=== PATIENT | male | born 1955 ===

== ENCOUNTER 2017-01-17 22:20 | Emergency (ER) | payer MEDICARE, OTHER ==
[2017-01-17 22:35] VITALS: RESP 20
[2017-01-17] MEDS ORDERED: Sodium Chloride 0.9% 1,000 ML IV ONE (23:10)
--- NOTE | 2017-01-17 23:18 | C.PDOC ---
History Of Present Illness Patient is a 61 year old male with a PMHx of vascular dementia and paranoid schizophrenia who presents to the ER for declining mental status for the past 5 days. Patient was seen by psychiatrist 2 days ago. Patient refuses to eat or answer question which is below baseline as per and daughter. Denies any physical complaints at this time. Time Seen by Provider: 01/17/17 22:55 Chief Complaint (Nursing): Altered Mental Status History Per: Patient History/Exam Limitations: None Onset/Duration Of Symptoms: Days (5) Onset Of Symptoms: Other (5 days) Current Symptoms Are (Timing): Still Present Usual Baseline: Unknown Exacerbating Factor(s): Unknown Use Of Anticoag/Antiplatelets: Unknown Speech Is: Normal Associated Symptoms: Not Eating, Other (Refuses to answer questions). denies: Fever, Chills, Vomiting, Diarrhea Past Medical History Reviewed: Historical Data, Nursing Documentation, Vital Signs Vital Signs: Last Vital Signs Temp 99 F 01/18/17 02:08 Pulse 96 H 01/18/17 02:08 Resp 20 01/18/17 02:08 BP 143/91 H 01/18/17 02:08 Pulse Ox 95 01/18/17 02:08 - Medical History PMH: Anxiety, Dementia, HTN, Hypercholesterolemia, Schizophrenia Surgical History: No Surg Hx Family History: States: Unknown Family Hx - Social History Hx Alcohol Use: No Hx Substance Use: No - Immunization History Hx Tetanus Toxoid Vaccination: No Hx Influenza Vaccination: No Hx Pneumococcal Vaccination: No Review Of Systems Constitutional: Negative for: Fever, Chills Gastrointestinal: Negative for: Nausea, Vomiting, Diarrhea Neurological: Positive for: Altered Mental Status Physical Exam - Physical Exam Appears: Well, Non-toxic, Other (Morbidly obese) Skin: Normal Color, Warm, Dry Head: Atraumatic, Normacephalic Eye(s): bilateral: Normal Inspection, PERRL, EOMI Oral Mucosa: Moist Chest: Symmetrical, No Tenderness Cardiovascular: Rhythm Regular, No Murmur Respiratory: Normal Breath Sounds, No Rales, No Rhonchi, No Wheezing Gastrointestinal/Abdominal: Soft, No Tenderness Neurological/Psych: Oriented x3, Other (Awake, alert, giving nonsensical answers.) ED Course And Treatment - Laboratory Results Result Diagrams: 01/17/17 23:17 01/17/17 23:17 Lab Interpretation: Normal (trop neg) ECG: Interpreted By Tn ECG Rhythm: Sinus Tachycardia ECG Interpretation: No Changes From Prior, Abnormal (mild ST dep lateral leads) Rate From EC O2 Sat by Pulse Oximetry: 98 (Room air) Pulse Ox Interpretation: Normal - Radiology CXR: Interpreted by Me CXR Interpretation: Yes: No Acute Disease, Heart Size (megaly) - CT Scan/US CT of head w/o contrast Other Rad Studies (CT/US): Read By Radiologist, Radiology Report Reviewed CT/US Interpretation: IMPRESSION: No CT evidence of acute intracranial abnormality. Notable white matter changes as reported above. Hyperattenuating focus in the right frontal lobe likely representing a calcification of unknown. etiology. Vascular calcification. Progress Note: Blood work, EKG, CXR, CT of head w/o contrast and urinalysis ordered. IV fluids administered. Reevaluation Time: 01:42 Reassessment Condition: Unchanged (remains comfortable, no complaints.) Medical Decision Making Medical Decision Making: chronic paranoid schizophrenia, no acute findings from baseline [place] [facility] [place] who support there is no reasonable criteria to admit this pt to psych at this time for seemingly baseline chronic psych issues with no harm to self/others/property/SI/HI discharge to f/u with PMD or [place] [facility] [place] [place] Dis[place] Doctor Will See Patient In The: Office Counseled Patient/Family Regarding: Studies Performed, Diagnosis - Disposition Referrals: Nick Zavaleta [Medical Doctor] - Disposition: HOME/ ROUTINE Disposition Time: 01:46 Condition: GOOD Additional Instructions: please continue meds as prescribed by Dr Zavaleta and follow up as able. [place] [facility] [place]. Instructions: Schizophrenia (ED) - Clinical Impression Clinical Impression: Paranoid schizophrenia
[2017-01-17 23:21] LABS: BASO % 0.3 % (0.0-2.0); EOS % 0.2 % (0.0-4.0); HEMATOCRIT 44.5 % (35.0-51.0); LYMPH # 1.5 K/uL (1.0-4.3); LYMPH % 14.1 % (20.0-40.0); MEAN CELL VOLUME 90.2 fL (80.0-94.0); MEAN CORPUSCULAR HEMOGLOBIN 29.8 pg (27.0-31.0); MEAN PLATELET VOLUME 9.8 fL (7.2-11.7); MONO # 0.9 K/uL (0.0-0.8); MONO % 8.7 % (0.0-10.0); RED CELL DISTRIBUTION WIDTH 14.3 % (11.5-14.5); WHITE BLOOD COUNT 10.4 K/uL (4.8-10.8)
[2017-01-17 23:34] LABS: CHLORIDE 99 mmol/L (98-107); SODIUM 142 mmol/L (132-148)
[2017-01-17 23:35] LABS: POTASSIUM 4.2 mmol/L (3.6-5.2)
[2017-01-17 23:37] LABS: ALB/GLOB RATIO 1.1 (1.0-2.1); ALKALINE PHOSPHATASE 109 U/L (38-126); ALT/SGPT 18 U/L (21-72); AST/SGOT 41 U/L (17-59); BILIRUBIN,TOTAL 1.3 mg/dL (0.2-1.3); BLOOD UREA NITROGEN 14 mg/dL (9-20); CARBON DIOXIDE 27 mmol/L (22-30); GFR AFRICAN-AMERICAN > 60; TOTAL PROTEIN 8.3 g/dL (6.3-8.3)
[2017-01-17 23:38] LABS: ALCOHOL SERUM < 10 mg/dl (0-10); CALCIUM 9.2 mg/dl (8.6-10.4); GLUCOSE,RANDOM 128 mg/dL (75-110)
[2017-01-18 00:23] LABS: THYROID STIMULATING HORMONE 2.95 mIU/L (0.46-4.68)
--- NOTE | 2017-01-18 01:12 | CT ---
EXAM: CT Head Without Intravenous Contrast CLINICAL HISTORY: 61 years old, male; Pain; Headache and other: Exac of vascular dementia TECHNIQUE: Axial computed tomography images of the head/brain without intravenous contrast. This CT exam was performed using one or more of the following dose reduction techniques: automated exposure control, adjustment of the mA and/or kV according to patient size, and/or use of iterative reconstruction technique. COMPARISON: No relevant prior studies available. FINDINGS: Brain: Bilateral white matter changes, greater on the left. This is nonspecific and may include microangiopathic disease, small lacunae of indeterminate chronicity, chronic infarcts and/or encephalomalacia. Most notable focus of encephalomalacia is adjacent to the left frontal horn. Hyperattenuating focus in the right frontal lobe likely representing a calcification of unknown etiology. Vascular calcification. No hemorrhage. No edema. Ventricles: No hydrocephalus. Bones: Skull is intact. Sinuses: Left maxillary sinus polyp versus mucous retention cyst. No acute sinusitis. Mastoid air cells: No mastoid effusion. IMPRESSION: No CT evidence of acute intracranial abnormality. Notable white matter changes as reported above. Hyperattenuating focus in the right frontal lobe likely representing a calcification of unknown etiology. Vascular calcification.
[2017-01-18 02:09] VITALS: BP 143/91; PULSE 96; TEMP 99
--- NOTE | 2017-01-18 12:30 | RAD ---
PROCEDURE: CHEST RADIOGRAPH, 1 VIEW. Semi erect study portable technique 23:36. HISTORY: SOB COMPARISON: None available. FINDINGS: LUNGS: Clear. PLEURA: No pneumothorax or pleural fluid seen. CARDIOVASCULAR: No radiographic findings to suggest acute or significant cardiovascular disease. OSSEOUS STRUCTURES: No significant abnormalities. VISUALIZED UPPER ABDOMEN: Normal. OTHER FINDINGS: None. IMPRESSION: No active disease. Cardiomegaly without CHF. Concordant results with the preliminary interpretation rendered by the emergency department physician procedure.
[2017-01-21 00:29] VITALS: O2SAT 98
--- NOTE | 2017-01-24 13:16 | CARD ---
APPROVED REPORT EKG Measurement Heart [id number] <Conclusion> Sinus tachycardia ST & T wave abnormality, consider anterior ischemia Abnormal ECG
== END 2017-01-18 02:09 | disposition home or self-care (01) ==
LOC: C.ER 22:20
DX: F20.0 Paranoid schizophrenia (principal)
CPT/HCPCS: 70450; 71010; 80053; 83880; 84443; 84484; 85025; 96360; 99285; G0480; J7040